=== PATIENT | male | born 1950 | race Caucasian/White ===

== ENCOUNTER → 2016-06-04 | Outpatient (CLI) | payer OTHER, BC ==
[~2016-06-04] MED LIST: AMLO-272 PO; ASPI81TA28 PO; ATEN-175 PO; IBUP-103 PO; IMP/50 PO; MULT-506 PO
[2016-06-04 09:47] LABS: ESTIMATED AVERAGE GLUCOSE 131 mg/dl; HA1C FLAG Normal (Normal)
[2016-06-04 09:59] LABS: ALT/SGPT 40 U/L (12-78); AST/SGOT 26 U/L (15-37); BLOOD UREA NITROGEN 17 mg/dl (7-18); BUN/CREATININE RATIO 17.6 (10-20); CALCIUM 8.3 mg/dl (8.5-10.1); CARBON DIOXIDE 28 mmol/L (21-32); CHLORIDE 104 mmol/L (98-107); CREATININE 0.96 mg/dl (0.60-1.40); GLUCOSE 158 mg/dl (70-99); POTASSIUM 4.1 mmol/L (3.5-5.1); SODIUM 139 mmol/L (136-145)
[2016-06-04 10:04] LABS: ALKALINE PHOSPHATASE 72 U/L (45-117); CHOLESTEROL 169 mg/dl (0-200); CHOLESTEROL/HDL RATIO 3.8; HDL CHOLESTEROL 44 mg/dl; LDL CHOLESTEROL CALCULATED 102 mg/dl; TRIGLYCERIDES 115 mg/dl (0-150); VERY LOW DENSITY LIPOPROT CALC 23 mg/dl
[2016-06-04 14:58] LABS: LYME DISEASE AB IGG NEG (NEG); LYME DISEASE AB IGM NEG (NEG)
--- NOTE | 2016-06-08 11:26 | CODING QUERY MEDICAL NECESSITY ---
SUPPORTING DIAGNOSIS NEEDED A supporting diagnosis is required for the test/procedure performed on this patient in order for us to be reimbursed by the patient's insurance. Please provide a supporting diagnosis for the following test/procedure listed below next to the test name along with your signature. *If there is no additional diagnosis for this patient that would support the following test/procedure please document that below next to the test/procedure. Test(s)/Procedure(s) that require a supporting diagnosis: * VITAMIN B-12 LEVEL DIAGNOSIS: * DOS: 06/04/16 Provider Signature: Date: Thank you Berna Olivera Health Information Management Once completed, please kindly fax back to [phone] For questions please call [phone]
== END | disposition home or self-care (01) ==
LOC: C.LAB 07:36
PROVIDERS: ATTEND Internal Medicine Geriatric Medicine
DX: I10 Essential (primary) hypertension (principal); E78.5 Hyperlipidemia, unspecified; R73.9 Hyperglycemia, unspecified; G62.9 Polyneuropathy, unspecified; N40.0 Benign prostatic hyperplasia without lower urinary tract symptoms

== ENCOUNTER → 2017-02-19 | Outpatient (CLI) | payer OTHER, BC ==
--- NOTE | 2017-02-19 08:54 | DIAGNOSTIC IMAGING REPORT ---
NECK ULTRASOUND HISTORY: R59.9 Lymph node enlargement left neck [id number] COMPARISON: None. FINDINGS: Real-time sonographic imaging of the left neck was performed. There is a 3.7 x 1.9 x 2.4 cm solid and cystic lesion within the left neck. This likely represents a pathologically enlarged lymph node. No additional enlarged lymph nodes within the left neck. IMPRESSION: A 3.7 x 1.9 x 2.4 cm lymph node within the left neck. This is considered pathologic. Ultrasound guided fine aspiration is recommended. Electronically signed by: Danie Rizzo M.D. 02/19/2017 8:53 AM Dictated Date/Time: 02/19/2017 8:42 AM
== END | disposition home or self-care (01) ==
LOC: C.ULTR 08:22
PROVIDERS: ATTEND Physician Assistant Medical
DX: R59.9 Enlarged lymph nodes, unspecified (principal)

== ENCOUNTER → 2017-02-25 | Outpatient (CLI) | payer OTHER, BC ==
--- NOTE | 2017-02-25 11:49 | DIAGNOSTIC IMAGING REPORT ---
GUIDANCE NEEDLE PLACEMENT CLINICAL HISTORY: R59.9 Lymph node enlargementultrasound guided FNA left neck lump nodule TECHNIQUE: Ultrasound-guided fine-needle aspiration COMPARISON STUDY: Ultrasound soft tissue neck 02/19/2017 FINDINGS: Following description of procedure and informed consent, a total of 4 passes with a 22 and 25-gauge needle were made to the solid as well as cystic components of the left superior soft tissue neck node/mass. There are no complications. Pathology is indicated adequate specimen cellularity. IMPRESSION: 1. Despite 4 passes with a variety of needles, pathology initially indicates inadequate specimen cellularity for diagnosis. 2. There are no complications. 3. Depending on the final pathology report, consideration may be given to a CT or MRI exam, versus PET scanning. The above report was generated using voice recognition software. It may contain grammatical, syntax or spelling errors. Electronically signed by: Valeriano Barnett M.D. 02/25/2017 11:48 AM Dictated Date/Time: 02/25/2017 11:45 AM
== END | disposition home or self-care (01) ==
LOC: C.ULTR 10:28
PROVIDERS: ATTEND Internal Medicine Geriatric Medicine
DX: R59.9 Enlarged lymph nodes, unspecified (principal)

== ENCOUNTER → 2017-03-05 | Outpatient (CLI) | payer OTHER, BC ==
[~2017-03-05] MED LIST changes: +OPTIRAY 320 IV PRN
--- NOTE | 2017-03-05 09:38 | DIAGNOSTIC IMAGING REPORT ---
SOFT TISSUE NECK WITH HISTORY: 66 years-old Male R22.1 Mass of left side of [id number] MALE WITH 3.7 CENTIME follow-up study to assess left neck mass seen on comparison ultrasound. History of prior FNA. COMPARISON: Ultrasound guided FNA 02/25/2017, ultrasound 02/19/2017 TECHNIQUE: Multiple axial CT images of the soft tissues of the neck were obtained following the intravenous administration of 93 mL Optiray 320 IV contrast. A dose lowering technique was used consistent with the principals of HUMERA. FINDINGS: The nasopharynx, oral pharynx and hypopharynx appear patent and within normal limits, however there is limited evaluation of the oral cavity and oropharynx secondary to streak artifact from dental amalgam hardware. No peritonsillar abscess. Parotid and submandibular glands are within normal limits bilaterally. The aryepiglottic vallecula and piriform sinuses appear symmetric and within normal limits. The glottis and subglottic airway appear unremarkable. Thyroid is homogeneous without dominant nodule identified. There is a mixed cystic and solid lesion with probable enhancement of the solid portions which is lobular with posterior medial portion of the mass adjacent to the carotid bifurcation measuring 2.7 x 1.8 x 3.5 cm in AP, transverse and craniocaudal dimensions. This correlates with the lesion seen on comparison ultrasound studies and appears stable in size from 02/19/2017 exam. No additional suspicious lesions or adenopathy. Image intracranial structures demonstrate no acute abnormality. The carotid vasculature appears patent. Lung apices are clear. Mild biapical pleural-parenchymal scarring. The bones appear intact. Mastoid air cells and middle ear cavities are clear. Paranasal sinuses are also generally clear. Multilevel intervertebral disc space narrowing and uncovertebral spurring of the cervical spine. No suspicious lytic or blastic bony lesions. There is moderate to severe intervertebral disc space narrowing at C5-C6 and C6-C7. IMPRESSION: 1. Ovoid mixed cystic and solid lesion with probable enhancement of the solid portions measures up to 3.5 cm correlating with the previously biopsied mass. Again, this suggests a pathologic level II lymph node. 2. Otherwise unremarkable CT study of the soft tissues of the neck without additional pathologic adenopathy or soft tissue masses identified. 3. Incidental note is made of moderate intervertebral disc space narrowing with facet arthrosis at C5-C6 and C6-C7. The above report was generated using voice recognition software. It may contain grammatical, syntax or spelling errors. Electronically signed by: Allan Negro M.D. 03/05/2017 9:37 AM Dictated Date/Time: 03/05/2017 9:26 AM
== END | disposition home or self-care (01) ==
LOC: C.CTS 08:44
DX: R22.1 Localized swelling, mass and lump, neck (principal)

== ENCOUNTER → 2017-03-12 | Outpatient (CLI) | payer OTHER, BC ==
[~2017-03-12] MED LIST changes: +MELA5TAB18 PO; -OPTIRAY 320 IV PRN
[2017-03-12 10:20] LABS: BASO % 1.3 %; BASO ABS # 0.05 K/uL (0-0.2); COMPLETE YES; EOS % 3.9 %; HEMATOCRIT 39.7 % (42-52); IG% 0.3 %; LYMPH % 29.2 %; LYMPH ABS # 1.12 K/uL (1.2-3.4); MEAN CELL VOLUME 92.8 fL (80-100); MEAN CORPUSCULAR HEMOGLOBIN 32.2 pg (25-34); MEAN CORPUSCULAR HGB CONC 34.8 g/dl (32-36); MEAN PLATELET VOLUME 10.4 fL (7.4-10.4); MONO % 8.1 %; NEUT % 57.2 %; PLATELET COUNT 280 K/uL (130-400); RED BLOOD COUNT 4.28 M/uL (4.7-6.1); WHITE BLOOD COUNT 3.83 K/uL (4.8-10.8)
[2017-03-12 10:27] LABS: PARTIAL THROMBOPLASTIN RATIO 1.1; PROTHROMBIN TIME (PATIENT) 10.7 SECONDS (9.0-12.0)
== END | disposition home or self-care (01) ==
LOC: C.CPL 09:39
DX: Z01.818 Encounter for other preprocedural examination (principal); R00.1 Bradycardia, unspecified

== ENCOUNTER 2017-03-20 07:02 | Day surgery (SDC) | payer OTHER, BC ==
[2017-03-12 16:07] VITALS: BMI 31.0
[~2017-03-20] VITALS: Ht 185.4 cm; Wt 109.1 kg
[~2017-03-20 07:02] MED LIST changes: +CEFAZOLIN 2000MG IV PUSH 10 ML IV SCH; +LACTATED RINGER'S 1000ML 1,000 ML IV SCH
[2017-03-20 07:47] VITALS: BP 138/79; PULSE 49; TEMP 36.6; O2SAT 100; Ht 185.4 cm; Wt 109.1 kg
[2017-03-20] MEDS ORDERED: MIDAZOLAM HCL 1 MG/ML 2ML VIAL ONE (07:54)
[2017-03-20] MEDS ORDERED: FENTANYL CITRATE INJ 50 MCG/1 ML 2 ML VIAL ONE (07:54)
--- NOTE | 2017-03-20 08:19 | History & Physical Bridge Note ---
H&P Re-Evaluation Bridge Note: I have examined the patient, reviewed the History & Physical and in the interval since the performance of the History & Physical I have noted the following changes of clinical significance: No changes noted
[2017-03-20] MEDS ORDERED: LIDOCAINE/EPINEPHRINE 1% 20 ML VIAL ONE (08:40)
[2017-03-20] MEDS ORDERED: BACITRACIN OINT 15 GM TUBE ONE (08:40)
[2017-03-20] MEDS ORDERED: THROMBIN 5000 UNITS KIT ONE (08:40)
[2017-03-20] MEDS ORDERED: HYDROmorphone INJ 2 MG/ML SYR/VIAL ONE (08:57)
[2017-03-20] MEDS ORDERED: ONDANSETRON INJ 2 MG/ML 2 ML VIAL ONE (09:19)
[2017-03-20] MEDS ORDERED: DEXAMETHASONE SOD INJ 4 MG/ML VIAL ONE (09:19)
[2017-03-20] MEDS ORDERED: SUCCINYLCHOLINE CHLORIDE 20 MG/ML 10 ML VIAL IV ONE (09:19)
[2017-03-20] MEDS ORDERED: PROPOFOL IV EMULSION 10 MG/ML 20 ML VIAL IV ONE ×2 (09:19→10:16)
[2017-03-20] MEDS ORDERED: LIDOCAINE HCL 2% 2 ML VIAL (20MG/ML) ONE (09:19)
[2017-03-20] MEDS ORDERED: EpHEDrine SULFATE 50MG/5ML SYR ONE (09:23)
[2017-03-20] MEDS ORDERED: EpHEDrine SULFATE INJ 50 MG/ML AMP ONE (09:51)
[2017-03-20] MEDS ORDERED: PHENYLEPHRINE 100MCG/ML 5ML SYR ONE (09:51)
--- NOTE | 2017-03-20 10:13 | [facility] Operative Report ---
Operative Report Operative Date Mar 20, 2017. 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 Ruiz Engraving Press Operator Surgeon(s) Kailyn Fountain PA-C Estimated Blood Loss 10 mL Findings 1. 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 Any exceptions are noted below.
[2017-03-20] MEDS ORDERED: HYDROCODONE/ACETAMOPHEN 5/325MG TAB PO PRN ×2 (10:15)
[2017-03-20] MEDS ORDERED: ONDANSETRON INJ 2 MG/ML 2 ML VIAL IV PRN ×2 (10:15→11:15)
--- NOTE | 2017-03-20 10:17 | Discharge Instructions ---
Discharge Instructions Date of Service Mar 20, 2017. Admission Reason for Admission: Mass Of Left Side Of Neck Discharge Discharge Diagnosis / Problem: SAME Discharge Goals Goal(s): Therapeutic intervention Activity Recommendations Activity Limitations: as noted below 1. LIGHT ACTIVITY FOR 2 WEEKS - NO LIFTING > OR = 15LBS AND NO RUNNING 2. NO DRIVING WHILE ON NORCO . 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 Who to Call and When: Medical Emergencies: If at any time you feel your situation is an emergency, please call 911 immediately. . Non-Emergent Contact Non-Emergency issues call your: Surgeon . . "Provider Documentation" section prepared by Adeel Ruiz. . VTE Core Measure Inpt VTE Proph given/why not?: SCD's
--- NOTE | 2017-03-20 11:07 | OPERATIVE REPORT ---
DATE OF OPERATION: 03/20/2017 PREOPERATIVE DIAGNOSIS: Left level 2/3 neck mass with differential diagnosis of branchial cleft cyst versus lymphoma versus metastatic carcinoma. 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 PROCEDURE: Excisional biopsy of left neck mass (likely second branchial cleft cyst). SURGEON: Dr. Ruiz. COOK CHILL TECHNICIAN: Kailyn Fountain PA-C. ESTIMATED BLOOD LOSS: 10 mL. FINDINGS: Mixed solid and cystic neck mass involving left level 2 and level 3 posterior and inferior to the left submandibular gland. SPECIMENS: Left neck mass for fresh pathological assessment to evaluate for branchial cleft cyst versus lymphoma versus metastatic carcinoma. DRAINS: None. COMPLICATIONS: None. INDICATIONS FOR THE PROCEDURE: The patient is a very pleasant 66-year-old male with a several month history of a left neck mass for which he underwent ultrasound and ultrasound guided fine needle aspiration biopsy which showed a few atypical lymphocytes and epithelial cells with a differential diagnosis of branchial cleft cyst versus metastatic carcinoma. The patient is asymptomatic. The rest of his physical examination is unremarkable. He has approximately 4 cm left level 2/3 neck mass that on the CT scan appears a mixture of both solid and cystic components. Clinically, appears to be a second branchial cleft cyst. Options including excisional biopsy versus left neck dissection versus watchful waiting were discussed with the patient and it was decided that he would undergo excisional biopsy. The patient presents for the above-mentioned procedure on an outpatient elective basis. OPERATION AND FINDINGS: DETAILS OF PROCEDURE: After informed consent had been obtained from the patient, the patient was wheeled to the operating room and placed on the operating table in the supine position. Monitors were placed. After induction of general endotracheal anesthesia, the patient's head was gently turned to the right and a marking pen was used to outline the planned 4 cm incision in the natural skin crease 2 fingerbreadths below the level of the angle of the mandible. A total of 3 mL of 1% lidocaine with 1:100,000 epinephrine used to inject the skin and subcutaneous tissues overlying the planned incision site. Nerve monitor electrodes were placed over the orbicularis federico and submental musculature so that the marginal mandibular nerve and submental branch of the facial nerve could be monitored during the case. The skin of the face, neck and chest were then prepped and draped in the usual sterile fashion. A #15 scalpel was used to make an incision through the skin, subcutaneous tissue, and platysma. Dissection was carried down to the level of the anterior border of the sternocleidomastoid muscle. Care was taken to identify and preserve the left great auricular nerve. Dissection was carried down to the level of the mass which was large and primarily cystic and measured approximately 4 cm in greatest dimension. Blunt and sharp dissection as well as the Harmonic scalpel was used to separate the mass from the surrounding soft tissues. The mass was inferior to the level of the left marginal mandibular nerve and the large left marginal mandibular nerve was not identified during the dissection as this mass was posterior and inferior to the submandibular gland. As the posterior aspect of the mass was being dissected the mass inadvertently popped and a small amount of brownish cystic contents expelled out of the mass. This actually allowed for decompression of the mass and more easier dissection using Harmonic scalpel. This mass was removed and sent for fresh pathological assessment. The wound was copiously irrigated with sterile water and suctioned. Bipolar electrocautery was used to achieve adequate hemostasis. Hemostasis was confirmed with a Valsalva maneuver. Small pieces of Surgicel were placed into the operative bed followed by topical spray thrombin. The platysma was then closed with several deep 3-0 Vicryl sutures. The subcutaneous tissues were reapproximated using several deep dermal 4-0 Monocryl sutures. The skin was then closed with a simple running subcuticular 5-0 Monocryl suture. Incision was cleansed and dried. Dermabond was applied to the incision. The electrodes were removed from the patient's face and chest and antibiotic ointment was applied to the electrode sites. This marked the end of the case. The patient tolerated the procedure well. There were no apparent complications. The patient was extubated and transferred to recovery room in stable condition. I attest to the content of the Intraoperative Record and any orders documented therein. Any exception s are noted below.
[2017-03-20] MEDS ORDERED: ATROPINE SULFATE 0.1 MG/ML 5ML SYR IV PRN (11:15)
[2017-03-20] MEDS ORDERED: FENTANYL CITRATE INJ 50 MCG/1 ML 2 ML VIAL IV PRN (11:15)
[2017-03-20] MEDS ORDERED: LABETALOL HCL IV 5 MG/ML 20ML IV PRN (11:15)
[2017-03-20 11:22] VITALS: BP 122/78; PULSE 63; TEMP 36.5; O2SAT 94
[2017-03-20 11:52] VITALS: BP 133/88; PULSE 65; TEMP 36.5; O2SAT 93
--- NOTE | 2017-03-20 12:21 | OPERATIVE REPORT ---
DATE OF OPERATION: 03/20/2017 ADDENDUM Of note, physician financial legal assistant, Kailyn Fountain assisted me for the entire case and then performed the skin closure including the 4-0 Monocryl, 5-0 Monocryl and Dermabond closure. I attest to the content of the Intraoperative Record and any orders documented therein. Any exception s are noted below.
[2017-03-20 12:22] VITALS: BP 128/80; PULSE 60; TEMP 36.5; O2SAT 95
--- NOTE | 2017-03-20 12:24 | Anesthesiology Progress Note ---
Anesthesia Post Op Note Date & Time Mar 20, 2017 at 12:24 Vital Signs Pain Intensity: 4 Vital Signs Past 12 Hours Date Time Temp Pulse Resp B/P (MAP) Pulse Ox O2 Delivery O2 Flow Rate FiO2 03/20/17 11:52 36.5 65 18 133/88 93 Room Air 03/20/17 11:22 36.5 63 18 122/78 94 Room Air 03/20/17 11:05 36.7 67 14 119/83 96 Room Air 03/20/17 10:55 65 15 127/82 96 Room Air 03/20/17 10:45 65 17 117/69 99 Oxymask 8 03/20/17 10:37 36.4 66 16 109/78 98 Oxymask 8 03/20/17 07:47 36.6 49 18 138/79 (98) 100 Room Air Notes Mental Status: alert / awake / arousable, participated in evaluation Pt Amnestic to Procedure: Yes Nausea / Vomiting: adequately controlled Pain: adequately controlled Airway Patency, RR, SpO2: stable & adequate BP & HR: stable & adequate Hydration State: stable & adequate Anesthetic Complications: no major complications apparent
[2017-04-03] MEDS ORDERED: FLUT50SP45 (09:45)
[2017-04-03] MEDS ORDERED: ASPI81TA28 PO (13:40)
== END 2017-03-20 12:35 | disposition home or self-care (01) ==
LOC: C.ACU 07:02
DX: C77.0 Secondary and unspecified malignant neoplasm of lymph nodes of head, face and neck (principal); I10 Essential (primary) hypertension; E78.5 Hyperlipidemia, unspecified; R73.9 Hyperglycemia, unspecified; Q53.9 Undescended testicle, unspecified; N40.0 Benign prostatic hyperplasia without lower urinary tract symptoms; G62.9 Polyneuropathy, unspecified; M19.90 Unspecified osteoarthritis, unspecified site; F41.0 Panic disorder [episodic paroxysmal anxiety]; Z87.891 Personal history of nicotine dependence; Z79.899 Other long term (current) drug therapy; E66.9 Obesity, unspecified; Z68.31 Body mass index [BMI] 31.0-31.9, adult; Z79.82 Long term (current) use of aspirin

== ENCOUNTER → 2017-03-27 | Outpatient (CLI) | payer OTHER, BC ==
[~2017-03-27] MED LIST changes: +ACET-1311 PO; -CEFAZOLIN 2000MG IV PUSH 10 ML IV SCH; +DOCU-94 PO; +FAMO40TA6 PO; +FLUT50SP45; +HYDR-3419 PO; +HYDR-5688 PO; -LACTATED RINGER'S 1000ML 1,000 ML IV SCH; +NYSS/ PO; +OXYC10SO PO; +PHEN-582 PO; +[UNRECOGNIZED DRUG - OTHER]
--- NOTE | 2017-03-27 17:38 | DIAGNOSTIC IMAGING REPORT ---
PET/CT HEAD AND NECK PROTOCOL CLINICAL HISTORY: Squamous cell carcinoma of the left neck. TECHNIQUE: A PET/CT was performed from the skull vertex through the upper thighs following intravenous injection of 12.22 mCi of F 18 FDG IV. The injection was performed at 1:01 PM on March 27, 2017 and imaging began at 2:28 PM on March 27, 2017. Unenhanced CT was performed for attenuation correction purposes and anatomic localization. COMPARISON STUDY: Neck CT March 05, 2017 and neck ultrasound February 19, 2017. FINDINGS: Head and neck: Mild infiltration with a small amount of fluid and gas within the left upper neck represents expected postsurgical change from recent excisional biopsy of a left level 2 lymph node. There is mild FDG uptake within the operative bed with an SUV max of 2.8. No enlarged cervical lymph node identified on this exam. No suspicious foci of radiotracer uptake are identified to suggest the primary lesion by PET/CT. Chest: There is moderate dilatation of the ascending aorta which measures 4.4 cm at the level of the main pulmonary artery. Mild cardiomegaly is noted. Lungs are suboptimally assessed due to respiratory motion. However, no suspicious pulmonary nodules are noted. There are few calcified right lung nodules. A prominent AP window lymph node has no significant abnormal FDG uptake. No suspicious uptake within the chest. Abdomen and Pelvis: No abdominal or pelvic lymphadenopathy is present. There is no overtly suspicious FDG uptake within the abdomen or the pelvis. A cystic structure within the right inguinal canal is noted. Previous ultrasound showed this cystic lesion to be within the right testis. The right testis may be within the right inguinal canal, as shown on ultrasound of June 03, 2007. There is asymmetric radiotracer uptake within the left testis within SUV max of 4. Musculoskeletal: No suspicious skeletal uptake is identified. IMPRESSION: 1. No evidence for metastatic disease. 2. Mild fluid, infiltration and soft tissue gas within the left upper neck consistent with recent excisional biopsy of a left level 2 node. Mild FDG uptake is postsurgical. No suspicious cervical harper uptake. No PET/CT evidence of a primary squamous cell carcinoma. 3. Asymmetric radiotracer uptake within the left testis with findings suggestive of an undescended right testis, as shown on ultrasound of June 03, 2007. The asymmetric left testicular uptake may be due to right testicular atrophy. However, a scrotal ultrasound is recommended to exclude a left testicular mass. 4. Moderate dilatation of the ascending aorta, measuring 4.4 cm. Electronically signed by: Andrea Ross M.D. 03/27/2017 5:37 PM Dictated Date/Time: 03/27/2017 4:47 PM
== END | disposition home or self-care (01) ==
LOC: C.PET 12:38
DX: C76.0 Malignant neoplasm of head, face and neck (principal)

== ENCOUNTER → 2017-04-06 | Outpatient (CLI) | payer OTHER, BC ==
[~2017-04-06] MED LIST changes: -ACET-1311 PO; -DOCU-94 PO; -FAMO40TA6 PO; -HYDR-3419 PO; -HYDR-5688 PO; -IBUP-103 PO; -NYSS/ PO; -OXYC10SO PO; -PHEN-582 PO; -[UNRECOGNIZED DRUG - OTHER]
[2017-04-06 10:37] LABS: BLOOD UREA NITROGEN 13 mg/dl (7-18); CREATININE 0.97 mg/dl (0.60-1.40)
== END | disposition home or self-care (01) ==
LOC: C.LAB 09:52
PROVIDERS: ATTEND Internal Medicine Geriatric Medicine
DX: R22.1 Localized swelling, mass and lump, neck (principal)

== ENCOUNTER → 2017-04-10 | Outpatient (CLI) | payer OTHER, BC ==
[~2017-04-10] MED LIST changes: +GADAVIST IV PRN
--- NOTE | 2017-04-10 14:41 | DIAGNOSTIC IMAGING REPORT ---
ORBIT RADIOGRAPHS 3 VIEWS HISTORY: pre-MRI screening. COMPARISON: None. FINDINGS: There are no radiopaque foreign bodies identified within the orbits. IMPRESSION: No radiopaque foreign bodies identified within the orbits. Electronically signed by: Darrel Castle M.D. 04/10/2017 2:40 PM Dictated Date/Time: 04/10/2017 2:40 PM
--- NOTE | 2017-04-10 19:50 | DIAGNOSTIC IMAGING REPORT ---
MRI OF THE NECK WITH AND WITHOUT CONTRAST CLINICAL HISTORY: Malignant neoplasm of base of tongue. Left neck cancer. Evaluate for primary malignancy. COMPARISON STUDY: CT of the neck March and PET/CT March 27, 2017. TECHNIQUE: Utilizing a 1.5 Moraima magnet and dedicated coil, multiplanar, multi echo imaging of the neck was performed pre and postcontrast administration. Injection of 10.5 cc of Gadavist IV was uneventful. FINDINGS: Visualized portions of the intracranial contents are unremarkable. No enhancing lesion is identified within visualized portions of the brain parenchyma. There are postsurgical findings consistent with resection of a left level 2 cervical lymph node. Minimal edema and enhancement within the operative bed is likely postsurgical. There is no nodular enhancement to suggest residual malignancy within the operative bed. The submandibular and parotid glands are normal. Epiglottis is normal. No mass within the tongue is identified. The retropharyngeal soft tissues are unremarkable. Pterygopalatine fossa are unremarkable. No suspicious marrow replacement is present. There is no cervical lymphadenopathy. Lung apices are clear by MRI. IMPRESSION: 1. Status post resection of a left level 2 cervical lymph node. Mild edema and enhancement within the operative bed is likely postsurgical. No nodular enhancement to suggest residual malignancy. 2. No primary squamous cell carcinoma identified within the neck by MRI. 3. No cervical lymphadenopathy. Electronically signed by: Andrea Ross M.D. 04/10/2017 7:49 PM Dictated Date/Time: 04/10/2017 4:04 PM
== END | disposition home or self-care (01) ==
LOC: C.MRI 14:12
PROVIDERS: ATTEND Otolaryngology
DX: C01 Malignant neoplasm of base of tongue (principal); C76.0 Malignant neoplasm of head, face and neck

== ENCOUNTER → 2017-06-26 | Outpatient (CLI) | payer OTHER, BC ==
[~2017-06-26] MED LIST changes: +ACET-1311 PO; +DOCU-94 PO; -GADAVIST IV PRN; +HYDR-3419 PO; +HYDR-5688 PO; +IBUP-103 PO; -MELA5TAB18 PO; +[UNRECOGNIZED DRUG - OTHER]
--- NOTE | 2017-06-26 13:13 | DIAGNOSTIC IMAGING REPORT ---
(TESTICULAR) SCROTUM-CONT CLINICAL HISTORY: 67 years-old Male presenting with Q53.9 Undescended [id number]. TECHNIQUE: Real-time grayscale and color and spectral Doppler ultrasound imaging of the scrotum was performed. COMPARISON: 06/03/2007. FINDINGS: Right testis: Fluid noted within the right inguinal canal, which appears to conform to an ovoid shape and is within hypoechoic parenchyma suggesting an inguinal testis. This entire region measures 6.7 x 2.8 x 3.7 cm. The cystic portion measures 4.5 x 2.4 x 4.0 cm. Normal color Doppler flow and arterial and venous waveforms in the testicular parenchyma. Epididymal head normal. Left testis: Few microliths evident in the testicular parenchyma. Testis measures 4.3 x 1.8 x 2.7 cm. Normal color Doppler flow and arterial and venous waveforms in the testicular parenchyma. Few 2-3 mm epididymal head cysts/spermatoceles. No hydrocele. Varicocele present. IMPRESSION: 1. No evidence of testicular torsion. 2. Right cryptorchidism/undescended testicle. Interval enlargement of the cystic intratesticular lesion without evidence of a solid testicular mass. Continued surveillance recommended given the significantly increased risk of testicular germ cell tumor in the setting of cryptorchidism. Electronically signed by: Werner Almeida M.D. 06/26/2017 1:12 PM Dictated Date/Time: 06/26/2017 1:07 PM
== END | disposition home or self-care (01) ==
LOC: C.ULTR 12:23
PROVIDERS: ATTEND Urology
DX: Q53.9 Undescended testicle, unspecified (principal)

== ENCOUNTER → 2017-07-29 | Outpatient (CLI) | payer OTHER, BC ==
[~2017-07-29] MED LIST changes: -HYDR-3419 PO; -[UNRECOGNIZED DRUG - OTHER]
[2017-07-29 11:06] LABS: ALBUMIN 3.4 gm/dl (3.4-5.0); ALKALINE PHOSPHATASE 78 U/L (45-117); ALT/SGPT 28 U/L (12-78); AST/SGOT 19 U/L (15-37); BLOOD UREA NITROGEN 11 mg/dl (7-18); CALCIUM 8.7 mg/dl (8.5-10.1); CARBON DIOXIDE 29 mmol/L (21-32); CREATININE 0.89 mg/dl (0.60-1.40); GLUCOSE 123 mg/dl (70-99); POTASSIUM 4.1 mmol/L (3.5-5.1); SODIUM 138 mmol/L (136-145); TOTAL PROTEIN 7.4 gm/dl (6.4-8.2)
[2017-07-29 11:12] LABS: CHOLESTEROL 129 mg/dl (0-200); LDL CHOLESTEROL CALCULATED 73 mg/dl
[2017-07-29 11:20] LABS: HEMOGLOBIN A1C 6.1 % (4.5-5.6)
== END | disposition home or self-care (01) ==
LOC: C.LAB 08:51
PROVIDERS: ATTEND Physician Assistant Medical
DX: Z00.00 Encounter for general adult medical examination without abnormal findings (principal); I10 Essential (primary) hypertension; E78.5 Hyperlipidemia, unspecified; W57.XXXA Bitten or stung by nonvenomous insect and other nonvenomous arthropods, initial encounter; N40.0 Benign prostatic hyperplasia without lower urinary tract symptoms; R73.9 Hyperglycemia, unspecified

== ENCOUNTER → 2017-11-04 | Outpatient (CLI) | payer OTHER, BC ==
[~2017-11-04] MED LIST changes: +FAMO40TA6 PO; -IBUP-103 PO
--- NOTE | 2017-11-04 10:34 | DIAGNOSTIC IMAGING REPORT ---
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 COMPARISON STUDY: PET/CT October 09, 2017. PROCEDURE: The procedure, risks and benefits were discussed with the patient including the risk of bleeding, infection and injury to adjacent structures. The patient agreed to the procedure and informed written consent was obtained. The procedure was performed by Dr. Ross following a timeout. Sonography of the left submandibular region demonstrated the 1.7 cm left submandibular lymph node shown on PET/CT of October 09, 2017. This node was targeted for fine needle aspiration. This node contains a fatty hilum although the cortex is mildly thickened. Under direct ultrasound guidance, 3 25-gauge fine needle aspirations were performed in addition to 1 pass with a 22-gauge needle. Preliminarily, lymphocytes were noted. No epithelial cells were noted. No additional sampling was performed given 4 passes. Patient tolerated the procedure well and no immediate complications were evident. IMPRESSION: Successful ultrasound guided fine needle aspiration of a 1.7 cm left submandibular lymph node. Electronically signed by: Andrea Ross M.D. 11/04/2017 10:32 AM Dictated Date/Time: 11/04/2017 10:29 AM
== END | disposition home or self-care (01) ==
LOC: C.ULTR 09:21
DX: C77.9 Secondary and unspecified malignant neoplasm of lymph node, unspecified (principal)

== ENCOUNTER → 2017-11-06 | Outpatient (CLI) | payer OTHER, BC ==
--- NOTE | 2017-11-06 13:55 | DIAGNOSTIC IMAGING REPORT ---
ULTRASOUND GUIDED FINE NEEDLE ASPIRATION AND CORE BIOPSY OF LEFT SUBMANDIBULAR LYMPH NODE CLINICAL HISTORY: Squamous cell carcinoma of head and neck. Left submandibular FDG avid lymph node. COMPARISON STUDY: Ultrasound guided fine needle aspiration of left submandibular lymph node November 04, 2017. PET/CT October 09, 2017. PROCEDURE: Sonography of the neck again demonstrated a mildly enlarged left submandibular lymph node which represents the FDG avid node shown on PET/CT. This node contains a fatty hilum with slightly thickened cortex. This was targeted for fine needle aspiration core biopsy. The procedure, risks and benefits were discussed with the patient including the risk of bleeding, infection and injury to adjacent structures. The patient agreed to the procedure and informed written consent was obtained. The procedure was performed by Dr. Ross following a timeout. Skin was prepped and draped in sterile fashion and local anesthesia was achieved with 1% lidocaine. Under direct ultrasound guidance, 3 25-gauge fine needle aspirations were performed. Lymphocytes were noted on preliminary pathology. One sample was sent for flow cytometry. At this time, 3 20-gauge core samples were obtained of the lymph node. Samples were deemed preliminarily adequate. The patient tolerated the procedure well and no immediate complications were evident. IMPRESSION: Successful ultrasound guided core biopsy and fine needle aspiration of a 1.7 cm left submandibular lymph node. One sample sent for flow cytometry. Electronically signed by: Andrea Ross M.D. 11/06/2017 1:54 PM Dictated Date/Time: 11/06/2017 1:52 PM
== END | disposition home or self-care (01) ==
LOC: C.ULTR 12:41
DX: C76.0 Malignant neoplasm of head, face and neck (principal)

== ENCOUNTER → 2017-11-21 | Outpatient (CLI) | payer OTHER, BC ==
[2017-11-21 09:35] LABS: BASO % 0.5 %; BASO ABS # 0.02 K/uL (0-0.2); EOS % 3.6 %; EOS ABS # 0.14 K/uL (0-0.5); HEMATOCRIT 36.6 % (42-52); HEMOGLOBIN 12.7 g/dL (14.0-18.0); LYMPH % 24.4 %; LYMPH ABS # 0.94 K/uL (1.2-3.4); MEAN CELL VOLUME 92.2 fL (80-100); MEAN CORPUSCULAR HGB CONC 34.7 g/dl (32-36); MEAN PLATELET VOLUME 10.3 fL (7.4-10.4); MONO % 9.9 %; MONO ABS # 0.38 K/uL (0.11-0.59); NEUT % 61.6 %; NEUT ABS # 2.37 K/uL (1.4-6.5); PLATELET COUNT 237 K/uL (130-400); RED CELL DISTRIBUTION WIDTH CV 12.7 % (11.5-14.5); RED CELL DISTRIBUTION WIDTH SD 42.8 fL (36.4-46.3); WHITE BLOOD COUNT 3.85 K/uL (4.8-10.8)
[2017-11-21 09:57] LABS: ALBUMIN 3.8 gm/dl (3.4-5.0); ALKALINE PHOSPHATASE 64 U/L (45-117); ALT/SGPT 27 U/L (12-78); AST/SGOT 19 U/L (15-37); BLOOD UREA NITROGEN 16 mg/dl (7-18); CARBON DIOXIDE 30 mmol/L (21-32); CHOLESTEROL 164 mg/dl (0-200); CREATININE 0.84 mg/dl (0.60-1.40); GLUCOSE 132 mg/dl (70-99); LDL CHOLESTEROL CALCULATED 94 mg/dl; POTASSIUM 4.1 mmol/L (3.5-5.1); SODIUM 139 mmol/L (136-145); TOTAL PROTEIN 7.4 gm/dl (6.4-8.2)
[2017-11-21 10:14] LABS: HEMOGLOBIN A1C 5.7 % (4.5-5.6)
== END | disposition home or self-care (01) ==
LOC: C.LAB 07:39
PROVIDERS: ATTEND Urology
DX: Z00.00 Encounter for general adult medical examination without abnormal findings (principal); C77.9 Secondary and unspecified malignant neoplasm of lymph node, unspecified; I10 Essential (primary) hypertension; R73.9 Hyperglycemia, unspecified; E78.5 Hyperlipidemia, unspecified; N40.0 Benign prostatic hyperplasia without lower urinary tract symptoms